=== PATIENT | female | born 1935 | race Two or more races ===

== ENCOUNTER 2018-01-28 17:50 | Inpatient (IN) | payer OTHER ==
[~2018-01-28] VITALS: Ht 157.5 cm; Wt 65.8 kg
[~2018-01-28 17:50] MED LIST: ARICEPT10 MG; ATACAND4 MG; ATORVASTATIN CA10 MG; DILTIAZEM ER120 MG; ELIQUIS2.5 MG; ISOSORBIDE MONO30 MG; LASIX20 MG; LEXAPRO5 MG; NAMENDA XR28 MG; SINGULAIR10 MG; TIAZAC240 MG
[2018-01-28] MEDS ORDERED: TIAZAC120 M1 (18:10)
[2018-01-28] MEDS ORDERED: DIGOXIN0.125 MG/2 (18:11)
[2018-01-28] MEDS ORDERED: CLONAZEPAM0.5 M1 (18:12)
[2018-01-28] MEDS ORDERED: ATACAND4 MG (18:12)
== END 2018-02-04 17:10 | disposition home or self-care (01) | DRG 308 ==
LOC: ER 17:50 → MEDI 20:14 → SEC-K 20:14 → MEDI 23:16
PROC: 4A033R1 Measurement of Arterial Saturation, Peripheral, Percutaneous Approach (ICD-10-PCS; principal; 2018-01-28)
PROC: 3E0F7GC Introduction of Other Therapeutic Substance into Respiratory Tract, Via Natural or Artificial Opening (ICD-10-PCS; 2018-01-28)
PROC: 4A12X4Z Monitoring of Cardiac Electrical Activity, External Approach (ICD-10-PCS; 2018-01-29)
PROC: B246ZZZ Ultrasonography of Right and Left Heart (ICD-10-PCS; 2018-01-30)
PROC: 02HV33Z Insertion of Infusion Device into Superior Vena Cava, Percutaneous Approach (ICD-10-PCS; 2018-01-31)
DX: I48.0 Paroxysmal atrial fibrillation (principal); I50.33 Acute on chronic diastolic (congestive) heart failure; J45.41 Moderate persistent asthma with (acute) exacerbation; I11.0 Hypertensive heart disease with heart failure; Z79.01 Long term (current) use of anticoagulants; E78.4 Other hyperlipidemia; J20.9 Acute bronchitis, unspecified; I25.10 Atherosclerotic heart disease of native coronary artery without angina pectoris; M17.11 Unilateral primary osteoarthritis, right knee; I27.29 Other secondary pulmonary hypertension; F03.90 Unspecified dementia, unspecified severity, without behavioral disturbance, psychotic disturbance, mood disturbance, and anxiety; R09.02 Hypoxemia; Z95.0 Presence of cardiac pacemaker; Z88.0 Allergy status to penicillin; K57.30 Diverticulosis of large intestine without perforation or abscess without bleeding; I47.1 Supraventricular tachycardia; I48.3 Typical atrial flutter